=== PATIENT | female | born 1950 | race Caucasian/White ===

== ENCOUNTER 2016-06-23 06:39 | Day surgery (SDC) | payer BC ==
--- NOTE | 2016-06-09 08:56 | HP ---
PREOPERATIVE HISTORY AND PHYSICAL: DATE OF SURGERY/ADMISSION: 06/23/16 DATE OF OFFICE VISIT/ENCOUNTER: 06/04/16 AGE: 65 ATTENDING SURGEON: Temitope Melendez MD PROCEDURE: Left thumb carpometacarpal joint arthroplasty. CHIEF COMPLAINT: Thumb pain. HISTORY OF PRESENT ILLNESS: This is a 65-year-old woman who has been complaining pain at the base o f her left thumb for approximately year and a half. She does not recall any injury. Pain can get a s bad as an 8/10. She has failed conservative treatment including oral NSAIDs and cortisone injecti on into the joint. 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 The pain has been persisting for a long enough time, and the patient was unable to get relief from conservative measures. She is interested in pursuing surg ical intervention at this time in the form of a left thumb carpometacarpal joint arthroplasty. PAST MEDICAL HISTORY: Hypothyroidism. PAST SURGICAL HISTORY: 1. Appendectomy in 1970. 2. Left breast tumor excision in 1973. 3. Right breast tumor excision in 1980. 4. Removal of pelvic adhesions in 1977. 5. Hysterectomy in 1977. 6. Bilateral eye LASIK surgery. 7. Ganglion cyst excision from left wrist. MEDICATION: 1. Estradiol 1 mg daily. 2. Levothyroxine sodium 25 mcg daily. 3. Vitamin D daily. ALLERGIES: ASPIRIN and PENICILLIN cause an upset stomach. FAMILY MEDICAL HISTORY: Significant for esophageal cancer and COPD. 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 She denies tobacco use, recre ational drug use, and alcohol use. REVIEW OF SYSTEMS: General: Negative for fevers, chills, or night sweats. No known anesthesia pro blems. HEENT: Negative for headache, lightheadedness, or syncopal episodes. Integumentary: Negat juan for abrasions, lesions, or open wounds. Cardiothoracic: Negative for hypertension, chest pain, palpitations, or edema. Pulmonary: Negative for shortness of breath with exertion, chronic cough, COPD. GI: Negative for nausea, vomiting, diarrhea, constipation, or GERD. : Negative for noctu homero, urinary frequency, urgency, history of UTIs, or kidney problems. Musculoskeletal: Positive fo r current complaint. Negative for chronic or intermittent back pain or history of fractures. Neuro logical: Negative for paresthesias, numbness, history of seizure, stroke, or epilepsy. Endocrine: Positive for hypothyroidism. Negative for diabetes. Hematologic: Negative for easy bruising, anem ia, excessive bleeding, or history of DVT. Infectious Disease: Negative for history of MRSA, hepati tis C, or HIV. PHYSICAL EXAMINATION GENERAL: Well-developed, well-nourished 65-year-old female, in no acute distress. VITAL SIGNS: Height 5 feet 4 inches, weight 187 pounds, pulse rate 60, blood pressure 116/78. HEENT: Normocephalic, atraumatic. Pupils are equal, round, and reactive to light and accommodation . Extraocular movements are intact. Throat is clear. NECK: Supple. No palpable lymph nodes. CARDIOTHORACIC: Regular rate and rhythm. S1, S2. No murmurs, rubs, or gallops. ABDOMEN: Positive bowel sounds, soft, nontender. NEUROLOGICAL: Alert and oriented x3. Cranial nerves II through XII are intact. Sensation is intact to light touch. Peripheral vascular 2+ radial and ulnar pulses. Negative Valentin test. MUSCULOSKELETAL: On exam of the left hand, she has tenderness at the thumb CMC joint and a positive grind test. She has full range of motion in opposition and abduction of the thumb, but it is painf ul at the extremes. She has no tenderness at the radial styloid and a negative Piter test. S he has a positive grind test. Neurovascular function is intact. There is no swelling and skin is i ntact. IMAGING STUDIES: X-rays of the left thumb showed degenerative changes at the first carpometacarpal joint. IMPRESSION: Left thumb carpometacarpal arthritis. PLAN: The patient is scheduled to undergo a left thumb carpometacarpal joint arthroplasty with Dr. Melendez on 06/23/16. She will return to the office in 10 to 14 days postop for followup and suture re moval. A prescription for Firth was e- scribed to the patient's postoperative pain management. KATHRYN SPICER [id number]/[facility] #: [id number]
[~2016-06-23 06:39] MED LIST: Buffered Lidocaine 1% SYR 3ML* 3 ML/SYR SYRINGE INTRADERM ONE; Famotidine IV* 10 MG/ML 2 ML (20 mg) IV ONE; Famotidine IV* 10 MG/ML 2 ML (20 mg) ONE
[2016-06-23] MEDS ORDERED: Clindamycin 900 MG IVPREMIX(* 900 MG/50 ML SDV IV ONE (06:50)
[2016-06-23] MEDS ORDERED: Lidocaine 1% INJ* 10 MG/ML 30 ML SDV ONE (07:29)
[2016-06-23] MEDS ORDERED: Bupivacaine 0.5% SDV PF* 30 ML VIAL ONE (07:29)
[2016-06-23] MEDS ORDERED: Dexamethasone IV* 4 MG/ML 1 ML (4 MG) ONE (07:42)
[2016-06-23] MEDS ORDERED: Midazolam* 1 MG/ML 5 ML VIAL (5 MG) ONE (07:42)
[2016-06-23] MEDS ORDERED: DiMENhydriNATE IV* 50 MG/ML VIAL ONE (07:42)
[2016-06-23] MEDS ORDERED: Propofol* 10 MG/ML 20 ML BTL IV PUSH ONE (07:42)
[2016-06-23] MEDS ORDERED: fentaNYL* 50 MCG/ML 2 ML VIAL (100 MCG VIAL) ONE (07:42)
[2016-06-23] MEDS ORDERED: Ketorolac INJ* 30 MG/ML 1 ML VIAL ONE (07:42)
[2016-06-23] MEDS ORDERED: Lidocaine 2% PF * 5 ML VIAL ONE (07:42)
[2016-06-23] MEDS ORDERED: Ondansetron INJ* 2 MG/ML VIAL ONE (07:42)
[2016-06-23] MEDS ORDERED: oxyCODONE/Acetamin 5/325 MG* TAB PO PRN (08:23)
[2016-06-23] MEDS ORDERED: HYDROmorphone* 1 MG/ML 1 ML SYR IV PRN (08:23)
[2016-06-23] MEDS ORDERED: DiMENhydriNATE IV* 50 MG/ML VIAL IV PUSH PRN (08:23)
[2016-06-23] MEDS ORDERED: HYDROcodone/ACETAMIN 5-325 MG* 1 TAB ONE (09:23)
[2016-06-23 10:08] VITALS: BP 122/60
--- NOTE | 2016-06-23 12:05 | OP ---
DATE OF OPERATION: 06/23/16 [facility] DATE OF : 54 SURGEON: Temitope Melendez MD CAPTAIN CANNERY TENDER: KATHRYN Bradley ANESTHESIOLOGIST: Marie Manning MD ANESTHESIA: General. PRE-OP DIAGNOSIS: Left thumb carpometacarpal arthritis. POST-OP DIAGNOSIS: Left thumb carpometacarpal arthritis. OPERATIVE PROCEDURE: Left thumb CMC arthroplasty. ESTIMATED BLOOD LOSS: Zero. TOURNIQUET TIME: About 30 minutes. INDICATION FOR PROCEDURE: Celsa is a 65-year-old female with painful arthritis of her left thumb carpometacarpal joint. She presents for CMC arthroplasty of the left thumb. DESCRIPTION OF PROCEDURE: The patient was brought to the operating room and was given a general anesthetic and placed in the supine position on the operating table with the tourniquet around her left upper arm. The skin of her left upper extremity was prepped and draped in the usual sterile fashion. The hand and forearm were exsanguinated and the tourniquet elevated to 250 mmHg. A curvilinear incision was made centered at the dorsoradial aspect of the CMC joint, dissected bluntly through the subcutaneous tissue. Branches of the radial sensory nerve were located and retracted by the rn surgical, Radha Costa. The APL and EPB tendons were located and then also retracted. A distally based U-shaped flap was created of the CMC joint capsule and subperiosteally dissected off the trapezium. Trapezium was then removed in its entirety with the combination of osteotome and rongeur. The wound was then irrigated with saline. The CMC joint capsule was secured to the FCR tendon in the base of the wound. This gave a very nice position of abduction of the metacarpal. The remainder of the joint capsule was closed with 4-0 nylon suture and then the skin edges were reapproximated with 4-0 nylon suture. The wound was dressed with Xeroform, 4x4, Webril, and a thumb spica splint. The patient tolerated the procedure well and was brought to the recovery room in good condition. [id number]/[facility] #: [id number] MTDD
== END 2016-06-23 10:02 | disposition home or self-care (01) ==
LOC: OREAST 06:39
PROVIDERS: ATTEND Orthopaedic Surgery
DX: M18.12 Unilateral primary osteoarthritis of first carpometacarpal joint, left hand (principal); E03.9 Hypothyroidism, unspecified; M19.90 Unspecified osteoarthritis, unspecified site; Z85.3 Personal history of malignant neoplasm of breast
CPT/HCPCS: 88304; 88311; J1100; J1240; J1885; J2001; J2250; J2405; J2704; J3010

== ENCOUNTER 2017-03-11 09:08 | Emergency (ER) | payer BC ==
[2017-03-11 10:40] VITALS: BP 135/63
--- NOTE | 2017-03-11 10:48 | UC ---
Throat Pain/Nasal Adán HPI - HPI Summary HPI Summary: 66 year old female with cough and sore throat. Concerned for strep ./ Cough and sore throat started 03/07/17. no fever. cough worse at night. non productive. cough for day 5 . not improved but not better. has tried oTC meds. - History of Current Complaint Chief Complaint: UCRespiratory Stated Complaint: SORE THROAT Time Seen by Provider: 03/11/17 10:42 Hx Obtained From: Patient Hx Last Menstrual Period: age 27 Onset/Duration: Gradual Onset Severity: Moderate Pain Intensity: 4 Cough: Nonproductive - Allergies/Home Medications Allergies/Adverse Reactions: Allergies Allergy/AdvReac Type Severity Reaction Status Date / Time MS Aspirin [Aspirin] Allergy Nausea Verified 03/11/17 10:30 MS Penicillins [Penicillins] Allergy Unknown Verified 03/11/17 10:30 Reaction Details Home Medications: Home Medications Ms Nyquil 1 dose PO QPM PRN 03/11/17 [History Confirmed 03/11/17] Ms Robitussin 1 dose PO SEE INSTRUCTIONS PRN 03/11/17 [History Confirmed ] Ms Vicks Dayquil 1 dose PO SEE INSTRUCTIONS PRN 03/11/17 [History Confirmed 02/25] PMH/Surg Hx/FS Hx/Imm Hx Previously Healthy: Yes Endocrine History: Hypothyroidism - Surgical History Surgical History: Yes Surgery Procedure, Year, and Place: Appendix, tumor removal left and right breast,. REMOVAL OF PELVIC ADHESIONS-1977. HYSTERETOMY-1977. PELVIC SEROMA- 1982. GANGLION CYST REMOVED-04/2009; left thumb 06/2016 at [facility] [place]. 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 Lives: With Family Alcohol Use: Rare Substance Use Type: None Smoking Status (MU): Never Smoked Tobacco Review of Systems Constitutional: Fatigue ENT: Sore Throat Respiratory: Cough Is Patient Immunocompromised?: No All Other Systems Reviewed And Are Negative: Yes Physical Exam Triage Information Reviewed: Yes Appearance: Well-Appearing, No Pain Distress, Well-Nourished Vital Signs: Initial Vital Signs Temp 98.5 F 03/11/17 10:34 Pulse 90 03/11/17 10:34 Resp 18 03/11/17 10:34 BP 135/63 03/11/17 10:34 Pulse Ox 100 03/11/17 10:34 Vital Signs Reviewed: Yes Eye Exam: Normal ENT Exam: Normal Dental Exam: Normal Neck exam: Normal Neck: Positive: 1 Respiratory Exam: Normal Respiratory: Positive: Chest non-tender, Lungs clear, Normal breath sounds Cardiovascular Exam: Normal Musculoskeletal Exam: Normal Neurological Exam: Normal Psychological Exam: Normal Skin Exam: Normal Throat Pain/Nasal Course/Dx - Differential Dx/Diagnosis Differential Diagnosis/HQI/PQRI: Pharyngitis, Sinusitis, Tonsillitis, URI Provider Diagnoses: URI Discharge - Discharge Plan Condition: Good Disposition: HOME Prescriptions: Benzonatate [Benzonatate 200 MG] 200 mg PO TID PRN #20 cap PRN Reason: Cough Patient Education Materials: Upper Respiratory Infection (ED) Forms: *Work Release Referrals: Erlin Davalos MD [Primary Care Provider] - 4 Days
== END 2017-03-11 11:38 | disposition home or self-care (01) ==
LOC: UCCORT 09:08
DX: J06.9 Acute upper respiratory infection, unspecified (principal)
CPT/HCPCS: 87651; 99212; G0463

== ENCOUNTER 2017-03-26 15:27 | Emergency (ER) | payer BC ==
[2017-03-26 17:16] VITALS: BP 138/63
[2017-03-26] MEDS ORDERED: Benzonatate CAP* 100 MG PO ONE (18:30)
--- NOTE | 2017-03-26 18:37 | UC ---
Respiratory Complaint HPI - HPI Summary HPI Summary: 66 YO FEMALE WITH COUGH >2 WEEKS NO F/C NO SINUS SYMPTOMS NO CP OR SOB NO LOPEZ OR MYALGIAS - History of Current Complaint Chief Complaint: UCRespiratory Stated Complaint: COUGH Time Seen by Provider: 03/26/17 18:22 Hx Obtained From: Patient Hx Last Menstrual Period: age 27 Onset/Duration: Gradual Onset, Lasting Weeks Timing: Constant Severity Initially: Mild Severity Currently: Moderate Pain Intensity: 0 Pain Scale Used: 0-10 Numeric Character: Cough: Nonproductive - Allergies/Home Medications Allergies/Adverse Reactions: Allergies Allergy/AdvReac Type Severity Reaction Status Date / Time aspirin Allergy Nausea Verified 03/26/17 17:05 Penicillins Allergy Unknown Verified 03/26/17 17:05 Reaction Details Home Medications: Home Medications Benzonatate 200 mg PO TID PRN 03/26/17 [History Confirmed 03/26/17] PMH/Surg Hx/FS Hx/Imm Hx Previously Healthy: Yes - Surgical History Surgical History: Yes Surgery Procedure, Year, and Place: Appendix, tumor removal left and right breast,. REMOVAL OF PELVIC ADHESIONS-1977. HYSTERETOMY-1977. PELVIC SEROMA- 1982. GANGLION CYST REMOVED-04/2009; [place] [facility] [place] OTHER SURGERIES PRIOR TO 1977- [place] [facility] [place] - Family History Known Family History: Positive: Hypertension - Social History Alcohol Use: Rare Substance Use Type: None Smoking Status (MU): Never Smoked Tobacco Review of Systems Constitutional: Negative Skin: Negative Eyes: Negative ENT: Negative Respiratory: Cough Cardiovascular: Negative Gastrointestinal: Negative Genitourinary: Negative Motor: Negative Neurovascular: Negative Musculoskeletal: Negative Neurological: Negative Psychological: Negative Is Patient Immunocompromised?: No All Other Systems Reviewed And Are Negative: Yes Physical Exam Triage Information Reviewed: Yes Appearance: Well-Appearing, No Pain Distress, Well-Nourished Vital Signs: Initial Vital Signs Temp 99.5 F 03/26/17 17:10 Pulse 79 03/26/17 17:10 Resp 18 03/26/17 17:10 BP 138/63 03/26/17 17:10 Pulse Ox 100 03/26/17 17:10 Vital Signs Reviewed: Yes Eyes: Positive: Conjunctiva Clear ENT: Positive: Normal ENT inspection, Hearing grossly normal, Uvula midline. Negative: Nasal congestion, Nasal drainage, Tonsillar swelling, Tonsillar exudate, Trismus, Muffled voice, Hoarse voice, Sinus tenderness Dental Exam: Normal Neck: Positive: Supple, Nontender, No Lymphadenopathy Respiratory: Positive: Chest non-tender, Lungs clear, Normal breath sounds, No respiratory distress, No accessory muscle use Cardiovascular: Positive: RRR, No Murmur Musculoskeletal: Positive: ROM Intact, No Edema Neurological: Positive: Alert Psychological Exam: Normal UC Diagnostic Evaluation - Laboratory O2 Sat by Pulse Oximetry: 100 - NORMAL/NOT HYPOXIC - Radiology Xray Interpretation: No Acute Changes Radiology Interpretation Completed By: Radiologist Respiratory Course/Dx - Differential Dx/Diagnosis Provider Diagnoses: acute bronchitis Discharge - Discharge Plan Condition: Stable Disposition: HOME Prescriptions: Azithromycin TAB* [Zithromax TAB*] 250 mg PO DAILY #6 tab Benzonatate CAP* [Tessalon CAP*] 100 - 200 mg PO TID PRN #28 cap PRN Reason: Cough Patient Education Materials: Acute Bronchitis (ED) Referrals: Erlin Davalos MD [Primary Care Provider] - 5 Days
--- NOTE | 2017-03-26 18:55 | RAD ---
INDICATION: Cough COMPARISON: None TECHNIQUE: PA and lateral dual-energy views were obtained. FINDINGS: Bones/Soft Tissues: There are no acute bony findings. Cardiomediastinal: The cardiomediastinal silhouette is normal. Lungs: There are no infiltrates. Pleura: There are no pleural effusions. Other: None IMPRESSION: NORMAL CHEST
== END 2017-03-26 19:08 | disposition home or self-care (01) ==
LOC: UCCORT 15:27
DX: J20.9 Acute bronchitis, unspecified (principal)
CPT/HCPCS: 71046; 99212; A9270-GY; G0463

== ENCOUNTER 2018-05-21 07:17 | Emergency (ER) | payer BC, MEDICARE ==
[2018-05-21 07:36] VITALS: BP 117/56
--- NOTE | 2018-05-21 07:45 | UC ---
Respiratory Complaint HPI - HPI Summary HPI Summary: 67 yo female with 4 day hx of cough/chest tightness and right otalgia no sob no sinus symptoms - History of Current Complaint Chief Complaint: UCGeneralIllness Stated Complaint: CHEST CONGESTION,ST,COUGH,RT EARACHE Time Seen by Provider: 05/21/18 07:39 Hx Obtained From: Patient Hx Last Menstrual Period: age 27 Onset/Duration: Gradual Onset Timing: Constant Severity Initially: Mild Severity Currently: Moderate Pain Intensity: 5 Pain Scale Used: 0-10 Numeric Character: Cough: Nonproductive Aggravating Factors: Deep Breaths, Recumbent Position Alleviating Factors: Nothing Associated Signs And Symptoms: Positive: Wheezing Related History: Similar Episode/Dx as: - bronchitis - Allergies/Home Medications Allergies/Adverse Reactions: Allergies Allergy/AdvReac Type Severity Reaction Status Date / Time aspirin Allergy Nausea Verified 05/21/18 07:36 Penicillins Allergy Unknown Verified 05/21/18 07:36 Reaction Details PMH/Surg Hx/FS Hx/Imm Hx Previously Healthy: Yes Endocrine History: Thyroid Disease Respiratory History: Bronchitis - Surgical History Surgical History: Yes Surgery Procedure, Year, and Place: Appendix, tumor removal left and right breast,. REMOVAL OF PELVIC ADHESIONS-1977. HYSTERETOMY-1977. PELVIC SEROMA- 1982. GANGLION CYST REMOVED-04/2009; left thumb 06/2016 at [facility]. SOME OTHER SURGERIES PRIOR TO 1977- DONE AT [facility] - Family History Known Family History: Positive: Hypertension - Social History Alcohol Use: Rare Substance Use Type: None Smoking Status (MU): Never Smoked Tobacco Review of Systems All Other Systems Reviewed And Are Negative: Yes Constitutional: Positive: Negative Skin: Positive: Negative Eyes: Positive: Negative ENT: Positive: Ear Ache Respiratory: Positive: Cough Cardiovascular: Positive: Negative Gastrointestinal: Positive: Negative Genitourinary: Positive: Negative Motor: Positive: Negative Neurovascular: Positive: Negative Musculoskeletal: Positive: Negative Neurological: Positive: Negative Psychological: Positive: Negative Physical Exam Triage Information Reviewed: Yes Appearance: Well-Appearing Vital Signs: Initial Vital Signs Temp 97.6 F 05/21/18 07:31 Pulse 86 05/21/18 07:31 Resp 16 05/21/18 07:31 BP 117/56 05/21/18 07:31 Pulse Ox 96 05/21/18 07:31 Vital Signs Reviewed: Yes Eyes: Positive: Conjunctiva Clear ENT: Positive: Hearing grossly normal, Pharynx normal, Hoarse voice, Uvula midline. Negative: Nasal congestion, Nasal drainage, TMs normal - right retracted, Tonsillar swelling, Tonsillar exudate, Trismus, Muffled voice, Sinus tenderness Dental Exam: Normal Neck: Positive: Supple, Nontender, No Lymphadenopathy Respiratory: Positive: No respiratory distress, No accessory muscle use, Wheezing - with forced expiration, Other: - bronchospastic cough Cardiovascular: Positive: RRR, No Murmur Abdomen Description: Positive: Nontender, No Organomegaly Bowel Sounds: Positive: Present Musculoskeletal: Positive: ROM Intact, No Edema Neurological Exam: Normal Psychological Exam: Normal Respiratory Course/Dx - Differential Dx/Diagnosis Provider Diagnosis: Bronchitis with bronchospasm, Laryngitis, Serous otitis media Discharge - Sign-Out/Discharge Documenting (check all that apply): Patient Departure All imaging exams completed and their final reports reviewed: No Studies - Discharge Plan Condition: Stable Disposition: HOME Prescriptions: Azithromycin TAB* [Zithromax TAB*] 250 mg PO DAILY #6 tab Benzonatate CAP* [Tessalon CAP*] 100 - 200 mg PO TID PRN #28 cap PRN Reason: Cough predniSONE [Deltasone 20 MG TAB] 20 mg PO DAILY 4 Days #4 tab Patient Education Materials: Acute Bronchitis (ED), How to Use a Metered-Dose Inhaler and a Spacer (ED) Referrals: Erlin Davalos MD [Primary Care Provider] - 4 Days - Billing Disposition and Condition Condition: STABLE Disposition: Home
[2018-05-21] MEDS ORDERED: predniSONE TAB* 20 MG PO ONE (07:46)
[2018-05-21] MEDS ORDERED: Albuterol HFA INHALER* 8 gm MDI INH ONE (07:46)
== END 2018-05-21 08:17 | disposition home or self-care (01) ==
LOC: UCCORT 07:17
DX: J20.9 Acute bronchitis, unspecified (principal); J04.0 Acute laryngitis; H65.91 Unspecified nonsuppurative otitis media, right ear; E07.9 Disorder of thyroid, unspecified; Z88.0 Allergy status to penicillin
CPT/HCPCS: 99213; A9270-GY; G0463; J7512

== ENCOUNTER 2019-03-28 11:45 | Emergency (ER) | payer MEDICARE ==
[2019-03-28 12:11] VITALS: BP 133/62
--- NOTE | 2019-03-28 12:29 | UC ---
Back Pain HPI - HPI Summary HPI Summary: 68-year-old female who started having back pain 3 weeks ago. She states she stopped doing her regular exercises for about a week which improved everything. She states she was afraid for approximately 3 days and then this past weekend she started having low back pain again. She denies any saddle anesthesia, no numbness or tingling in her extremities. She's had no urinary symptoms however she states today when she give a urinary specimen she had some burning on urination. - History of Current Complaint Chief Complaint: UCBackPain Stated Complaint: LOW BACK PAIN Time Seen by Provider: 03/28/19 12:11 Hx Obtained From: Patient Hx Last Menstrual Period: age 27 ?: No Onset/Duration: Gradual Onset, Lasting Weeks Timing: Intermittent Severity Initially: Moderate Severity Currently: Moderate Pain Intensity: 10 Character: Dull, Aching Aggravating Factor(s): Movement Alleviating Factor(s): Rest Associated Signs And Symptoms: Positive: Negative. Negative: Fever, Weakness, Numbness, Tingling, Abdominal Pain, Flank Pain, Bladder Incontinence, Bowel Incontinence - Allergies/Home Medications Allergies/Adverse Reactions: Allergies Allergy/AdvReac Type Severity Reaction Status Date / Time aspirin Allergy Nausea Verified 03/28/19 12:02 Penicillins Allergy Unknown Verified 03/28/19 12:02 Reaction Details Home Medications: Home Medications Naproxen Sodium [Aleve] 440 mg PO PRN 03/28/19 [History] PMH/Surg Hx/FS Hx/Imm Hx Previously Healthy: Yes Endocrine History: Thyroid Disease - Surgical History Surgical History: Yes Surgery Procedure, Year, and Place: Appendix, tumor removal left and right breast,. REMOVAL OF PELVIC ADHESIONS-1977. HYSTERETOMY-1977. PELVIC SEROMA- 1982. GANGLION CYST REMOVED-04/2009; left thumb 06/2016 at [facility] [place]. SOME OTHER SURGERIES PRIOR TO 1977- DONE AT [facility] [place] - Family History Known Family History: Positive: None, Hypertension - Social History Lives: With Family Alcohol Use: Rare Substance Use Type: None Smoking Status (MU): Never Smoked Tobacco Review of Systems All Other Systems Reviewed And Are Negative: Yes Genitourinary: Positive: Dysuria - Patient states today when she was giving her an specimen she had some burning on urination but has not had any other urinary symptoms before today Musculoskeletal: Positive: Other: - Patient has had low back pain over the past 3 weeks with no known injury. She states she was pain-free for 3 days and then over the weekend started experiencing the pain again. Is Patient Immunocompromised?: No Physical Exam Triage Information Reviewed: Yes Appearance: Well-Appearing, No Pain Distress, Well-Nourished Vital Signs: Initial Vital Signs Temp 97.6 F 03/28/19 12:06 Pulse 63 03/28/19 12:06 Resp 18 03/28/19 12:06 BP 133/62 03/28/19 12:06 Pulse Ox 100 03/28/19 12:06 Vital Signs Reviewed: Yes Respiratory: Positive: Lungs clear, Normal breath sounds, No respiratory distress, No accessory muscle use Cardiovascular: Positive: RRR, No Murmur, Pulses Normal, Brisk Capillary Refill Abdomen Description: Positive: Nontender, No Organomegaly, Soft. Negative: CVA Tenderness (R), CVA Tenderness (L), Distended, Guarding, Hepatomegaly, McBurney' s Point Tenderness, Splenomegaly Bowel Sounds: Positive: Present Musculoskeletal: Positive: Strength Intact, ROM Intact, Other: - Patient has back pain across her lower back, spine is nontender. No CVA tenderness. She states she cannot replicate the pain with movement however when she turns towards the right she does experience what seems to be a muscle strain. That area is nontender on palpation. When she goes from the chair to the exam table she moves slowly as though this is a muscle strain. Neurological: Positive: Alert, Muscle Tone Normal Psychological Exam: Normal Skin Exam: Normal Back Pain Course/Dx - Course Course Of Treatment: The patient is comfortable here. I think this is a low back strain however it may be due to a urinary tract infection and she had 1+ leukocytes in her urine. We will send it for culture. She preferred to be treated for urinary tract infection since she did have some burning on urination when she provided the urine specimen for us. She was advised to definitely follow up with her primary care provider in 2 or 3 days if she has no improvement in her symptoms. The patient is agreeable to this plan of action. - Differential Dx/Diagnosis Provider Diagnosis: UTI (urinary tract infection), Low back strain Discharge ED - Sign-Out/Discharge Documenting (check all that apply): Patient Departure All imaging exams completed and their final reports reviewed: No Studies - Discharge Plan Condition: Good Disposition: HOME Prescriptions: Sulfamethox/Trimethoprim DS* [Bactrim DS 800/160 TAB*] 1 tab PO BID 5 Days #10 tab Patient Education Materials: Urinary Tract Infection in Older Adults (ED) Referrals: Erlin Davalos MD [Primary Care Provider] - Additional Instructions: Increase fluids, take the Bactrim with food. Follow-up with your doctor in 2 or 3 days if no improvement. If you have any worsening symptoms such as fever, chills or vomiting and unable keep medicine down go to the emergency room for further treatment. - Billing Disposition and Condition Condition: GOOD Disposition: Home
== END 2019-03-28 12:53 | disposition home or self-care (01) ==
LOC: UCCORT 11:45
DX: N39.0 Urinary tract infection, site not specified (principal); S39.012A Strain of muscle, fascia and tendon of lower back, initial encounter; Z88.0 Allergy status to penicillin; Z88.8 Allergy status to other drugs, medicaments and biological substances; X58.XXXA Exposure to other specified factors, initial encounter; Y92.9 Unspecified place or not applicable
CPT/HCPCS: 81003; 87086; 99212; G0463